=== PATIENT | male | born 1990 | race Caucasian/White ===

== ENCOUNTER → 2022-03-16 | Outpatient (REF) | LOC: M LAB 10:05 | PROVIDERS: ATTEND Nurse Practitioner Adult Health | DX: Z00.00 Encounter for general adult medical examination without abnormal findings (principal) ==

== ENCOUNTER → 2022-03-24 | Outpatient (REF) | LOC: M EMP 15:46 | PROVIDERS: ATTEND Family Medicine | DX: Z00.00 Encounter for general adult medical examination without abnormal findings (principal) ==